=== PATIENT | female | born 1995 | race Caucasian/White ===

== ENCOUNTER 2019-01-24 09:47 | Emergency (ER) | payer SELFPAY ==
[~2019-01-24] VITALS: Ht 160 cm; Wt 46.3 kg
--- NOTE | 2019-01-24 09:53 | NUR ---
called pts name in er lobby. per admitting, pt using restroom at this time.
[2019-01-24 09:57] VITALS: BP 129/79
--- NOTE | 2019-01-24 10:02 | NUR ---
PT STATED THAT SHE WANTS TO SEE HER PCP AND DOES NOT WISH TO BE SEEN BY ER MD STATING SHE IS WORRIED ABOUT CARR.
== END 2019-01-24 10:02 | disposition left against medical advice (07) ==
LOC: MED 09:47
DX: R31.9 Hematuria, unspecified (principal); R30.9 Painful micturition, unspecified; Z53.21 Procedure and treatment not carried out due to patient leaving prior to being seen by health care provider